=== PATIENT | female | born 1960 | race Caucasian/White ===

== ENCOUNTER 2025-03-13 09:59 | Day surgery (SDC) | payer OTHER, SELFPAY ==
[2025-03-13] VITALS (9 sets, daily range): BP systolic 98–136; BP diastolic 54–69; PULSE 65–82; RESP 14–16; TEMP 36.1–36.8; O2SAT 98; BMI 24.5
[2025-03-13] MEDS: Lactated Ringers 1,000 ML 15 ML IV (10:46)
--- NOTE | 2025-03-13 10:55 | PCM.PRE.AN2 ---
ASA Classification* ASA Classification ASA Classification: 2 Assessment & Plan Anesthesia* Anesthesia Assessment Anesthesia Assessment: Discussed sedation and/or anesthesia options, risks, benefits, and alternatives with patient/parents/legal guardian/POA. Questions invited. The patient/parents/legal guardian/POA seems to understand and agrees to proceed with anesthesia plan. Reviewed the physical assessment, medical history, allergy history and patient home medications list prior to surgery/procedure/anesthetic and documented any changes. Performed airway and anesthesia risk assessments. Anesthesia Type Anesthesia Type: MAC Anesthesia Focused Assessment* Temperature: 98.3 F Pulse Rate: 67 Blood Pressure: 126/69 Respiratory Rate: 14 Pulse Ox: 98 Airway Assessment Mouth opens: >3 cm Mallampati Score: II Labs Anesthesia Preop lab: CBC WBC Pending Today, 10:46 RBC Pending Today, 10:46 Hgb Pending Today, 10:46 Hct Pending Today, 10:46 Plt Count Pending Today, 10:46 CHEMISTRY Potassium Pending Today, 10:46 Sodium Pending Today, 10:46 BUN Pending Today, 10:46 Creatinine Pending Today, 10:46 Glucose Pending Today, 10:46 COAG Pre-Assessment Diagnosis/Proposed Procedure Planned Operative Procedure(s): HYSTEROSCOPY D&C WITH POLYP RESECTION Anesthesia History 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 When Was Last Pacemaker Check QUESTION #4 FULL TEXT: You/Your Family Experience fever (hyperthermia) with Anesthesia Last Oral Intake Last Oral intake: Last Oral Intake NPO since 19:30 03/13/25 10:35 Meds taken in AM with sips of No 03/13/25 10:35 water? Meds patient instructed to take am of surgery PONV PONV - district superintendent: PONV - district superintendent Female Yes 02/27/25 09:11 HX of Motion Sickness Yes 02/27/25 09:11 HX of N/V After Surgery No 02/27/25 09:11 Non-Smoker Yes 02/27/25 09:11 Duration of Surgery greater No 02/27/25 09:11 than 60 minutes Number of Risk Factors 3 02/27/25 09:11 PONV Score Moderate Risk 02/27/25 09:11 Height & Weight Height & Weight: Anesthesia: Height & Weight Height 5 ft 5 in 03/13/25 10:35 Weight: 67 kg 03/13/25 10:35 Body Mass Index (BMI) 24.5 03/13/25 10:35 Respiratory Assessment Respiratory Assessment - district superintendent: Respiratory Tract Infection Hx - district superintendent Hx Respiratory Tract Infection No 02/27/25 09:11 STOP Sleep Apnea STOP Sleep Apnea - district superintendent: STOP Sleep Apnea - district superintendent Hx Hypertension No 02/27/25 09:11 Hx Sleep Apnea No 02/27/25 09:11 CPAP BIPAP Do you snore loudly (louder No 02/27/25 09:11 than talking or can be heard Do you often feel tired/ Yes 02/27/25 09:11 fatigued/ sleepy during daytime? Has anyone observed you stop No 02/27/25 09:11 breathing during sleep? STOP Results Negative 02/27/25 09:11 QUESTION #5 FULL TEXT : Do you snore loudly (louder than talking or can be heard through closed doors)? 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 Specify any problems Hx of Preganancy in last 3 No 02/27/25 09:11 Months Nurse Filling Out Transfusion DSCHRIBER 02/27/25 09:11 & Questions: Date: 02/27/25 02/27/25 09:11 Time: 09:13 02/27/25 09:11 Patient unable to answer at this time (ie. confused, unrespo /Reproduction History /Reproductive History - district superintendent: /Reproductive Hx- district superintendent Hx Now No 02/27/25 09:11 Gestational Age (in weeks): EDC: Hx Hx Para Hx Section SAB No 02/27/25 09:11 Active Medications Active Medications: Current Medications Generic Name Dose Route Start Last Admin Trade Name Freq PRN Reason Stop Dose Admin Lactated Ringer's 1,000 mls @ 15 mls/hr 03/13/25 10:30 03/13/25 10:46 IV 15 mls/hr .Q48H CELE Administration PFSH Medical History Wears glasses Post-menopausal Arthritis Restless legs Non-smoker Leg cramps History of edema Home Medications Medication Instructions Recorded Last Taken Type acetaminophen 325 mg tablet 650 mg PO Q4H PRN pain 02/27/25 Unknown History (Tylenol) multivitamin (Daily Multi-Vitamin 1 tab PO DAILY 02/27/25 Unknown History tablet) Allergy/AdvReac Type Severity Reaction Status Date / Time No Known Allergies Allergy Verified 03/13/25 10:34 Surgical History Hx of tubal ligation Hx of lithotripsy Social History Smoking Status: Never smoker Review of Systems (Anesthesia) ROS Narrative System reviewed and no additional complaints, except as documented.
[2025-03-13 11:21] LABS: Anion Gap 10 (5-15); BUN 16 mg/dL (4-19); BUN/Creat Ratio 16.4 RATIO (10-20); Calcium,Total 9.6 mg/dL (7.6-11.0); Carbon Dioxide 25.1 mmol/L (21.0-32.0); Chloride 106 mmol/L (98-108); Estimated Creatinine Clearance 53.27 ml/min (50-250); Glucose 105 mg/dL (70-99); Potassium 4.1 mmol/L (3.3-5.1)
[2025-03-13] MEDS: Midazolam 2 MG/2 ML Syringe IV (11:36)
[2025-03-13] MEDS: Lidocaine 1% (5 ml sdv) 5 ML Vial 6 ML IV (11:41)
--- NOTE | 2025-03-13 11:45 | EMB_PTH ---
PATIENT: NATALIYA GOMES LOC: [facility] – [place] U#:[id number] AGE/SX: 64/F ROOM: RE03/13/[address]: Dr. Samia Floyd MD : 1960 BED: DIS: 03/13/2025 SPEC #: [id number] RECD: 03/13/25 13:27 STATUS: ROSA REKrystina #: [id number] NABIL: 03/13/25 11:[address]: Samia Floyd DEPT: SURGICAL PATHOLOGY RECD BY: Tom Andrews ENTERED: 03/13/25 15:17 SP TYPE: ENDOM BX/C IRVIN DR: YESENIA Pompa Tissues: A - Endometrium, NOS Procedures: Surgery Specimen Level IV HEADER OPERATION: Hysteroscopy, D&C, polypectomy PRE-OP DIAGNOSIS: Endometrial polyp TISSUE SUBMITTED: A- Endometrial curettings and polyp MICROSCOPIC DIAGNOSIS A. Endometrium, curettage, polypectomy: - Endometrial polyp. - Disordered proliferative endometrium. MICROSCOPIC DESCRIPTION Slides are reviewed. GROSS DESCRIPTION A. Received in formalin labeled with the patient's name and date of . Designated as "endometrial curettings and polyp" is a 2.6 x 1.9 x 0.3 cm aggregate of ward-white to pink irregular tissue fragments. Entirely submitted in 1 cassette. CA 03/13/2025 CPT:81484
--- NOTE | 2025-03-13 11:53 | PCM.DC ---
Discharge Instructions DC O2, CPAP, BIPAP needs Home O2 Discharge instructions: No Dressing / Incision Discharge Activity: May Take a Tub Bath (in 1 week) Return to work on:: 03/14/25 May shower in (days): 1 May resume sexual activity in: 1 week Lifting Restrictions: none Dressing / Incision Call your doctor if your incision/area has: Sudden Increased Bleeding and Foul Smelling Discharge Call your doctor if you observe: Fever of 101 or Higher and Using more than 1 pad per hour (for 2 hrs in a row) Follow Up Care Please Follow Up With: Samia Floyd MD When: You do not have to have a postop appointment. Call [phone] or send a [employer] message to make an appointment or with any concerns. We will contact you with your pathology. Test Results: Test results from this visit will be discussed in further detail at your follow-up appointment, if applicable. Discharge Plan Admission Primary Reason for Your Visit: Hysteroscopy D&C Attending Provider: Samia Floyd Primary Care Provider: Sejal Silva CAMP DIRECTOR Instructions Print Language: Ukrainian Discharge Orders/Prescriptions Prescriptions: No Action multivitamin [Daily Multi-Vitamin] Tablet 1 tab PO DAILY acetaminophen [Tylenol] 325 mg tablet 650 mg PO Q4H PRN (Reason: pain) Disposition Disposition (needs filled in before D/C Order can be placed): Home, Self Care
[2025-03-13] MEDS: Lidocaine 1% /Epi 1:100 (20ml) 20 ML Vial (12:09)
--- NOTE | 2025-03-13 12:12 | OP.PCM_ITS ---
Operative Report (Standard) Operative Information Date of Procedure: 03/13/25 Pre-Operative Diagnosis: endometrial polyp Post-Operative Diagnosis: same Surgery/Procedure Performed: hysteroscopy D&C with polyp resection director diabetes: Yes Storm Door Maker: Donnell Fowler MS3 Tasks completed by fast food sales assistant: Retracting Additional executive chef assistant?: No Type of Anesthesia: MAC/Supplemental/Local RN Documented Start/Stop Times: Operation Date: 03/13/25 11:45 Case Time Into Pre-Op 03/13/25 10:18 Out of Pre-Op 03/13/25 11:33 Anesthesia Start 03/13/25 11:36 Into Room 03/13/25 11:36 Procedure Start 03/13/25 11:57 Procedure End 03/13/25 12:10 Procedure Start Time: 11:57 Procedure Stop Time: 12:10 Select all DRAINS/GRAFTS/IMPLANTS that apply: None Special Medications: none Estimated Blood Loss: 5 Fluids Replaced: 700 cc Specimen collected: Yes Description of specimen(s) removed: endometrial curettings and polyp Description of surgery: The patient was taken to the OR where she was prepped and draped in dorsal lithotomy position. The weighted speculum was placed in the vagina and the anterior lip of the cervix was grasped with a single-tooth tenaculum. A paracervical block was administered with 1% lidocaine with 1-100,000 epinephrine solution. The cervix was dilated serially with Hegar dilators. The Symphion hysteroscope was placed into the uterine cavity and the above findings were noted. Bilateral tubal ostia were identified. The Symphion resection device was readied and inserted. The polyps were removed in their entirety and then the device was used to do a sampling of the endometrial tissue. The instruments were removed from the vagina. The specimen was handed off and sent to pathology. All sponge and needle counts were correct. Vaginal sweep was performed by me. The patient was awakened and taken to the recovery room in stable condition. Hysteroscopic fluid deficit is calculated to be 350 cc of normal saline Surgical Findings: normal cervix, atrophic endometrium, polyp on right uterine fudal side and anterior wall, smaller polyp anterior lower uterine segment, no other focal abnormaliteis Complications Complications: No Admit VTE Documentation VTE Present on Admission: No VTE Mechan Device Prophylaxis: SCD's VTE Pharm Prophylaxis ordered?: No
--- NOTE | 2025-03-13 12:21 | PCM.POST.ANE ---
Anesthesia: Postop Eval I Current Vital Signs Temperature: 98.1 F Pulse Rate: 74 Blood Pressure: 101/54 Respiratory Rate: 16 Pulse Ox: 98 Assessment Airway patent: Yes Spontaneous unlabored respirations: Yes nausea: No Vomiting: No Anesthesia Complication: No Fluid Hydration Crystalloid volume administer (ml): 700 Total IV fluid infused: 700 Progress Note Anesthesia document: Postop Eval 1 completed: Yes
--- NOTE | 2025-03-13 12:51 | POSTOPAN2_ITS ---
Anesthesia Postop Eval I Sum Postop Eval Completion status Anesthesia document: Postop Eval 1 completed: Yes Anesthesia Postop Eval I Summary Anesthesia Postop Eval I Summary: Anesthesia Postop Eval I: Assessment Summary Airway patent Yes 03/13/25 12:21 WAREHOUSE DISTRIBUTION ASSOCIATE.TNES Spontaneous unlabored Yes 03/13/25 12:21 WAREHOUSE DISTRIBUTION ASSOCIATE.TNES respirations Mental status nausea No 03/13/25 12:21 WAREHOUSE DISTRIBUTION ASSOCIATE.TNES Vomiting No 03/13/25 12:21 WAREHOUSE DISTRIBUTION ASSOCIATE.TNES Anesthesia Postop Eval I: Fluid Summary Crystalloid volume administer 700 03/13/25 12:21 WAREHOUSE DISTRIBUTION ASSOCIATE.TNES (ml) Colloids volume administered ( ml) Blood Product volume administered (ml) Total IV fluid infused 700 03/13/25 12:21 WAREHOUSE DISTRIBUTION ASSOCIATE.TNES Anesthesia Postop Eval I: Summary Notes Anesthesia Complication No 03/13/25 12:21 WAREHOUSE DISTRIBUTION ASSOCIATE.TNES Anesthesia Complication Comment: Post-operative progress note Anesthesia: Postop Eval II Evaluation Mental status: Awake Pain Level: 0 nausea: No Vomiting: No
--- NOTE | 2025-03-13 12:51 | PCM.POSTANE2 ---
Anesthesia Postop Eval I Sum Postop Eval Completion status Anesthesia document: Postop Eval 1 completed: Yes Anesthesia Postop Eval I Summary Anesthesia Postop Eval I Summary: Anesthesia Postop Eval I: Assessment Summary Airway patent Yes 03/13/25 12:21 PLANER [email or web address] Spontaneous unlabored Yes 03/13/25 12:21 PLANER STONE.[email or web address] respirations Mental status nausea No 03/13/25 12:21 PLANER STONE.[email or web address] Vomiting No 03/13/25 12:21 PLANER [email or web address] Anesthesia Postop Eval I: Fluid Summary Crystalloid volume administer 700 03/13/25 12:21 PLANER STONE.TNES (ml) Colloids volume administered ( ml) Blood Product volume administered (ml) Total IV fluid infused 700 03/13/25 12:21 [email or web address] [email or web address] Anesthesia Postop Eval I: Summary Notes Anesthesia Complication No 03/13/25 12:21 PLANER [email or web address] Anesthesia Complication Comment: Post-operative progress note Anesthesia: Postop Eval II Evaluation Mental status: Awake Pain Level: 0 nausea: No Vomiting: No
[2025-03-13 22:56] LABS: Hematocrit 39.2 % (37-47); Hemoglobin 12.8 g/dL (12.0-15.0); Mean Corp Hgb Conc 32.7 g/dL (32-36); Mean Corpuscular Volume 90.7 fL (81-99); Mean Platelet Vol. 10.6 fl (6.2-12.0); Platelet Count 306 K/mm3 (150-450); RBC Distribution Width CV 12.1 % (11.6-14.6); RBC Distribution Width SD 40.1 fl (35.1-43.9); Red Blood Count 4.32 M/mm3 (4.2-5.4); White Blood Count 7.9 K/mm3 (4.4-11.0)
== END 2025-03-13 13:29 | disposition home or self-care (01) ==
LOC: SDC 10:15 → AC 10:16
PROVIDERS: PCP Nurse Practitioner; Referring Provider Obstetrics & Gynecology; Visit Provider Obstetrics & Gynecology
DX: N84.0 Polyp of corpus uteri (principal)
CPT/HCPCS: 58558; 00952; 80048; 85027; 88305; J2405